=== PATIENT | female | born 2000 | race Caucasian/White ===

== ENCOUNTER 2022-01-03 09:41 | Emergency (ER) | payer OTHER ==
[~2022-01-03] VITALS: Ht 162.6 cm; Wt 69.8 kg
[~2022-01-03 09:41] MED LIST: AMOXICILLIN500 MG PO; CEPHALEXIN500 MG PO; LEVOTHYROXINE75 MCG PO; TRANEXAMIC ACI650 MG PO
[2022-01-03] MEDS ORDERED: ONDANSETRON ODT4 MG PO (13:45)
--- NOTE | 2022-01-04 15:54 | EKG ---
[facility] [address] [place], [place] [address] Signed Normal sinus rhythm Normal ECG No previous ECGs available Confirmed by SHAWN MCKENZIE MD ([place]) on 01/04/2022 3:53:18 PM Also confirmed by SHAWN MCKENZIE MD ([place]) on 01/04/2022 3:53:56 PM Electronically Signed By: SHAWN MCKENZIE MD 01/04/22 1553 Electronically Signed By: SHAWN MCKENZIE MD 01/04/22 1554 PATIENT NAME: SHERRON VALLADARESANEY LOU Electrocardiogram DATE OF : [birth year] PHYSICIAN: SHAWN MCKENZIE MD REPORT #: [id number] REPORT IS CONFIDENTIAL AND NOT TO BE RELEASED WITHOUT AUTHORIZATION
== END 2022-01-03 14:10 | disposition home or self-care (01) ==
LOC: ED 09:41
DX: R56.9 Unspecified convulsions (principal); G43.909 Migraine, unspecified, not intractable, without status migrainosus; R11.10 Vomiting, unspecified; E03.9 Hypothyroidism, unspecified; Z79.899 Other long term (current) drug therapy
CPT/HCPCS: 36415; 70450; 71045; 80053; 81001; 83735; 84146; 84703; 85025; 93005; 93010; 96361; 96374; 96375; 96376; 99284-25; J0780; J1100; J1200; J3475; J7030

== ENCOUNTER 2023-03-31 22:05 | Emergency (ER) | payer BC, OTHER ==
[~2023-03-31 22:05] MED LIST changes: +ONDANSETRON ODT4 MG PO
[2023-03-31] MEDS ORDERED: LEVOTHYROXINE75 MC1 PO (22:16)
[2023-03-31 22:32] LABS: BASOPHILS 0.5 % (0-2); HEMATOCRIT 38.8 % (35.0-50.0); HEMOGLOBIN 13.1 g/dL (12.0-18.0); LYMPHOCYTES 31.6 % (24-44); MCH 31.7 (27-36); MCHC 33.9 g/dl (30-36); MCV 93.6 fl (81-99); MONOCYTES 6.4 % (0-12); NEUTROPHILS 60.5 % (39-80); PLATELET COUNT 171 K/uL (140-440); RBC 4.14 M/ul (4.3-5.7); RDW 12.8 (10.5-15.0)
[2023-03-31 22:37] LABS: BILIRUBIN, URINE NEGATIVE (negative); BLOOD/HGB, URINE SMALL (Negative); KETONE, URINE TRACE (Negative); LEUK ESTERASE, URINE NEGATIVE (negative); NITRITE, URINE NEGATIVE (negative); PH, URINE 5.5 (5-7)
[2023-03-31 22:41] LABS: AMPHETAMINES, UR NEGATIVE (NEGATIVE); BARBITURATES, UR NEGATIVE (NEGATIVE); BENZODIAZEPINES, UR NEGATIVE (NEGATIVE); BUPRENORPHINE,UR NEGATIVE (NEGATIVE); COCAINE, UR NEGATIVE (NEGATIVE); MARIJUANA (THC), UR POSITIVE (NEGATIVE); MDMA, UR NEGATIVE (NEGATIVE); METHADONE, UR NEGATIVE (NEGATIVE); METHAMPHETAMINE, UR NEGATIVE (NEGATIVE); OPIATES, UR NEGATIVE (NEGATIVE); OXYCODONE, UR NEGATIVE (NEGATIVE); PHENCYCLIDINE, UR NEGATIVE (NEGATIVE); TRICYCLIC ANTIDEPRESSANT, UR NEGATIVE (NEGATIVE)
[2023-03-31 22:42] LABS: EPITHELIAL CELLS, URINE SQUAMOUS 1+ /lpf (0-1+)
[2023-03-31 22:43] LABS: BACTERIA, URINE RARE /hpf (negative); CASTS, URINE NONE SEEN \\lpf; CRYSTALS, URINE NONE SEEN (0-1+); RED BLOOD CELLS, URINE 0-1 /hpf (0-5); REFLEX CULTURE, URINE No (No); WHITE BLOOD CELLS, URINE 0-1 /HPF (0-5)
[2023-03-31 22:53] LABS: ABO B; RH POSITIVE
[2023-03-31 23:12] LABS: ALBUMIN 4.3 g/dL (3.4-5.0); ALBUMIN/GLOBULIN RATIO 1.54 (1.1-2.4); ANION GAP 13.4 (7-21); BILIRUBIN, TOTAL 1.6 ng/dL (0.2-1.0); BUN/CREATININE RATIO 14.03 (6.0-28.6); CALCIUM 8.6 mg/dL (8.5-10.1); CREATININE, SERUM 0.57 mg/dL (0.55-1.02); POTASSIUM 3.4 mmol/L (3.5-5.1); PROTEIN, TOTAL 7.1 g/dL (6.4-8.2)
[2023-03-31 23:23] VITALS: BP 108/57
== END 2023-03-31 23:22 | disposition home or self-care (01) ==
LOC: ED 22:05
PROVIDERS: Family Medicine
DX: O20.0 Threatened abortion (principal); Z3A.01 Less than 8 weeks gestation of pregnancy; Z79.890 Hormone replacement therapy
CPT/HCPCS: 36415; 76801; 76817; 80053; 80307; 81001; 84702; 85025; 86900; 86901; J7030

== ENCOUNTER 2024-03-23 21:28 | Inpatient (IN) | payer BC, OTHER ==
[~2024-03-23] VITALS: Ht 167.6 cm; Wt 102.5 kg
[~2024-03-23 21:28] MED LIST changes: +LEVOTHYROXINE75 MC1 PO
[2024-03-23 22:15] LABS: HEMATOCRIT 33.2 % (35.0-50.0); HEMOGLOBIN 11.5 g/dL (12.0-18.0); MCH 32.1 (27-36); MCHC 34.7 g/dl (30-36); MCV 92.7 fl (81-99); RBC 3.58 M/ul (4.3-5.7); RDW 13.2 (10.5-15.0)
[2024-03-23] MEDS ORDERED: MAGNESIUM HYDROXIDE/AL HYDROX 30 ML CUP PO PRN (22:15)
[2024-03-23] MEDS ORDERED: OXYTOCIN/DEXTROSE 5% 20 UNITS/100 ML BAG IV SCH (22:15)
[2024-03-23] MEDS ORDERED: LACTATED RINGER'S 1,000 ML IV PRN (22:15)
[2024-03-23] MEDS ORDERED: CALCIUM CARBONATE 500 MG CHEW PO PRN (22:15)
[2024-03-23 22:49] LABS: ABO B; RH POSITIVE
[2024-03-23 22:50] LABS: ANTIBODY SCREEN NEGATIVE
[2024-03-24] MEDS ORDERED: MAGNESIUM HYDROXIDE/AL HYDROX 30 ML CUP PO PRN (01:15)
[2024-03-24] MEDS ORDERED: OXYTOCIN/0.9 % SODIUM CHLORIDE 500 ML IV SCH ×2 (01:15→01:45)
[2024-03-24] MEDS ORDERED: MAGNESIUM HYDROXIDE 30 ML UDC PO PRN (01:15)
[2024-03-24] MEDS ORDERED: CALCIUM CARBONATE 500 MG CHEW PO PRN (01:15)
[2024-03-24] MEDS ORDERED: IBUPROFEN 600 MG TAB PO PRN (01:15)
[2024-03-24] MEDS ORDERED: WITCH HAZEL/GLYCERIN 1 EA PAD TOP PRN (01:15)
[2024-03-24] MEDS ORDERED: ACETAMINOPHEN 325 MG TAB PO PRN (01:15)
[2024-03-24] MEDS ORDERED: HYDROCORTISONE ACETATE 25 MG SUPP PR PRN (01:15)
[2024-03-24] MEDS ORDERED: BENZOCAINE 60 ML AEROSOL TOP PRN (01:15)
[2024-03-24] MEDS ORDERED: miSOPROStoL 200 MCG TAB SL ONE (02:00)
[2024-03-24] MEDS ORDERED: TRANEXAMIC ACID IN NACL,ISO-OS 100 ML IV ONE (02:45)
[2024-03-24] MEDS ORDERED: TRANEXAMIC ACID IN NACL,ISO-OS 1,000 MG/100 ML PIGGYBACK IV ONE (03:00)
[2024-03-24] MEDS ORDERED: LACTATED RINGER'S 1,000 ML IV ONE (04:30)
[2024-03-24] MEDS ORDERED: CLINDAMYCIN PHOSPHATE/D5W 900 MG/50 ML PIGGYBACK IV SCH (04:45)
[2024-03-24 04:53] LABS: AMPHETAMINES, URINE NEGATIVE (NEGATIVE); BARBITURATES, URINE NEGATIVE (NEGATIVE); BENZODIAZEPINE, URINE NEGATIVE (NEGATIVE); BUPRENORPHINE, URINE NEGATIVE (NEGATIVE); CANNABINOID, URINE POSITIVE (NEGATIVE); COCAINE, URINE NEGATIVE (NEGATIVE); ECSTASY, URINE NEGATIVE (NEGATIVE); FENTANYL, URINE NEGATIVE (NEGATIVE); METHADONE, URINE NEGATIVE (NEGATIVE); OPIATES, URINE NEGATIVE (NEGATIVE); OXYCODONE, URINE NEGATIVE (NEGATIVE); PHENCYCLIDINE, URINE NEGATIVE (NEGATIVE)
[2024-03-24 04:59] LABS: HEMOGLOBIN 8.6 g/dL (12.0-18.0)
[2024-03-24] MEDS ORDERED: GENTAMICIN SULFATE IV SCH ×3 (05:00→08:00)
[2024-03-24] MEDS ORDERED: SODIUM CHLORIDE 0.9% IV SCH ×3 (05:00→08:00)
[2024-03-24 05:01] LABS: BASOPHILS 0.1 % (0-2); HEMATOCRIT 24.7 % (35.0-50.0); LYMPHOCYTES 4.2 % (24-44); MCH 32.4 (27-36); MCV 92.7 fl (81-99); MONOCYTES 3.1 % (0-12); NEUTROPHILS 92.6 % (39-80); PLATELET COUNT 134 K/uL (140-440); RBC 2.66 M/ul (4.3-5.7); RDW 13.1 (10.5-15.0)
[2024-03-24 05:37] VITALS: BP 111/67
[2024-03-24] MEDS ORDERED: GENTAMICIN SULFATE 80 MG/2 ML VIAL ONE (05:53)
[2024-03-24] MEDS ORDERED: GENTAMICIN SULFATE 400 MG in SODIUM CHLORIDE 0.9% 100 ML IV ONE (06:00)
[2024-03-24] MEDS ORDERED: GENTAMICIN SULFATE 400 MG in SODIUM CHLORIDE 0.9% 100 ML IV SCH (06:00)
[2024-03-24] MEDS ORDERED: GENTAMICIN SULFATE 120 MG in SODIUM CHLORIDE 0.9% 100 ML IV ONE (07:30)
[2024-03-24] MEDS ORDERED: SENNOSIDES/DOCUSATE 1 EA TAB PO SCH (09:00)
[2024-03-24 11:31] LABS: INR 1.13 (0.80-1.30); PARTIAL THROMBOPLASTIN TIME 31.1 Sec (22.9-41.3); PROTIME 13.8 Sec (11.2-14.2)
[2024-03-24 18:31] LABS: ANION GAP 12.7 (7-21); BUN/CREATININE RATIO 6.45 (6.0-28.6); CARBON DIOXIDE 25 mmol/L (21-32); CHLORIDE 106 mmol/L (98-107); CREATININE, SERUM 0.62 mg/dL (0.55-1.02); GLOMERULAR FILTRATION RATE,EST 129 mL/min (>60); POTASSIUM 3.7 mmol/L (3.5-5.1); UREA NITROGEN 4 mg/dL (7-18)
[2024-03-25 11:20] LABS: BASOPHILS 0.3 % (0-2); EOSINOPHILS 1.1 % (0-6); HEMATOCRIT 24.8 % (35.0-50.0); HEMOGLOBIN 8.7 g/dL (12.0-18.0); MCH 32.6 (27-36); MCV 93.3 fl (81-99); NEUTROPHILS 75.6 % (39-80); PLATELET COUNT 143 K/uL (140-440); RBC 2.66 M/ul (4.3-5.7); RDW 13.2 (10.5-15.0)
--- NOTE | 2024-04-04 16:14 | PR ---
[facility] [address] [facility] [place], [place] [address] Signed PP Progress Notes Datetime Report Generated by CPN: 03/25/2024 11:29 SUBJECTIVE: [id number] Pain: Within Normal Limits Nausea/Vomiting: Denies Flatus: Yes Vital Signs: [id number] Vital Signs: Reviewed; Within Normal Limits Notable Details: Afebrile x30+ hours EXAM: Ongoing Cardiovascular: Normal Respiratory: Normal Abdomen/Uterus: Normal Lochia: Normal Vulva/Perineum: Not Done Breasts: Not Done CVA Tenderness: Normal Extremities: Normal Incision: Not Applicable Progress: Normal IMPRESSION/PLAN/PROCEDURES: [id number] Impression: Normal Progression; Endometritis Plan: Discharge Procedures: None Progress Notes: AFebrile. WBC decreased to 9.5 from 18.4. H/H stable platelets normalized. Pain and lochia well controlled. Will D/C patient. Signing Physician: Marie Arambula MD Copies: ~ *Electronically Signed* 03/25/24 1129 MARIE ARAMBULA MD PATIENT NAME: BLAINEBRIGGSWESLEY LOU PROGRESS NOTE DATE OF : 01 PHYSICIAN: MARIE ARAMBULA MD RPT #: [id number] REPORT IS CONFIDENTIAL AND NOT TO BE RELEASED WITHOUT AUTHORIZATION
--- NOTE | 2024-04-04 16:14 | PR ---
[facility] [address] [place], [place] [address] Signed PP Progress Notes Datetime Report Generated by CPN: 03/24/2024 10:49 SUBJECTIVE: [id number] Pain: Within Normal Limits Nausea/Vomiting: Denies Flatus: Yes Vital Signs: [id number] Vital Signs: Reviewed Notable Details: Temp of 102 at 350cc EXAM: Ongoing Cardiovascular: Normal Respiratory: Normal Abdomen/Uterus: Normal Lochia: Normal Vulva/Perineum: Normal Breasts: Not Done CVA Tenderness: Normal Extremities: Normal Incision: Not Applicable Progress: Normal IMPRESSION/PLAN/PROCEDURES: [id number] Impression: Endometritis; Increased Temperature Plan: Continue Present Management; Antibiotic Therapy Procedures: None Progress Notes: After patient presented and delivered last night she reported that she had underwent SROM on Thursday. She was noted to have a temp of 102 at 2am. She was started on Gent and clinda. She has blood culture, placenta cultures, urine cultures pending. She has been afebrile since that time. WBC is 18.4 H/H is 8.6/24.7, platelets are mildly low at 134. Signing Physician: Marie Arambula MD Copies: ~ *Electronically Signed* 03/24/24 1049 MARIE ARAMBULA MD PATIENT NAME: BRIGITTE VALLADARES PROGRESS NOTE DATE OF : 01 PHYSICIAN: MARIE ARAMBULA MD RPT #: [id number] REPORT IS CONFIDENTIAL AND NOT TO BE RELEASED WITHOUT AUTHORIZATION
--- NOTE | 2024-04-04 16:14 | PR ---
[facility] [address] [facility] [place], [place] [address] Signed PP Progress Notes Datetime Report Generated by CPN: 03/24/2024 11:08 SUBJECTIVE: [id number] Pain: Within Normal Limits Nausea/Vomiting: Denies Flatus: Yes Vital Signs: [id number] Vital Signs: Reviewed Notable Details: Temp of 102 at 350cc EXAM: Ongoing Cardiovascular: Normal Respiratory: Normal Abdomen/Uterus: Normal Lochia: Normal Vulva/Perineum: Normal Breasts: Not Done CVA Tenderness: Normal Extremities: Normal Incision: Not Applicable Progress: Normal IMPRESSION/PLAN/PROCEDURES: [id number] Impression: Endometritis; Increased Temperature Plan: Continue Present Management; Antibiotic Therapy Procedures: None Progress Notes: Total EBL 1,140 treated with picotin, cytotec and TXA. DIC panel ordered. No further bleeding at this point. Signing Physician: Marie Arambula MD Copies: ~ *Electronically Signed* 03/24/24 1108 MARIE ARAMBULA MD PATIENT NAME: BRIGITTE VALLADARES PROGRESS NOTE DATE OF : 01 PHYSICIAN: MARIE ARAMBULA MD RPT #: [id number] REPORT IS CONFIDENTIAL AND NOT TO BE RELEASED WITHOUT AUTHORIZATION
== END 2024-03-25 13:05 | disposition home or self-care (01) | DRG 806 ==
LOC: FBCO 21:28 → FBC 21:41
PROVIDERS: ADMIT Obstetrics & Gynecology; ATTEND Obstetrics & Gynecology
PROC: 10E0XZZ Delivery of Products of Conception, External Approach (ICD-10-PCS; principal; 2024-03-23)
PROC: 0HQ9XZZ Repair Perineum Skin, External Approach (ICD-10-PCS; 2024-03-23)
DX: O77.0 Labor and delivery complicated by meconium in amniotic fluid (principal); D62 Acute posthemorrhagic anemia; Z37.0 Single live birth; O86.12 Endometritis following delivery; O99.284 Endocrine, nutritional and metabolic diseases complicating childbirth; E03.9 Hypothyroidism, unspecified; O90.81 Anemia of the puerperium; Z3A.39 39 weeks gestation of pregnancy
CPT/HCPCS: 36415; 80048; 80170; 80307; 85025; 85027; 85384; 85610; 85730; 86850; 86900; 86901; 87040; 87070; 87075; 87088; 87205; A9270; J1580; J2590; J3490; J7121